=== PATIENT | female | born 1960 | race Caucasian/White ===

== ENCOUNTER 2017-01-12 05:30 | Observation (INO) | payer MEDICAID, OTHER ==
[~2017-01-12] VITALS: Ht 154.9 cm; Wt 49.9 kg
[2017-01-12 06:51] LABS: Basophils # (auto) 0 uL; Eosinophils # (auto) 0 uL; Eosinophils % (auto) 0.2 % (0.0-7.0); Hematocrit 39.6 % (36.0-46.0); Hemoglobin 13.4 g/dL (12.2-16.2); Lymphocytes # (auto) 1.1 uL; Lymphocytes % (auto) 9.3 % (10.0-50.0); Mean Corpuscular Hemoglobin 28.9 pg (28.0-32.0); Mean Corpuscular Hgb Conc. 33.8 g/dL (32.0-36.0); Mean Corpuscular Volume 85.5 fL (80.0-100.0); Mean Platelet Volume 8.3 fL (7.4-10.4); Monocytes # (auto) 0.3 uL; Monocytes % (auto) 2.2 % (0.0-12.0); Neutrophils # (auto) 10.5 uL; Neutrophils % (auto) 88.3 % (37.0-80.0); Platelet Count (auto) 239 10^3/uL (140-450); Red Cell Distribution Width 13.4 % (11.6-16.0); White Blood Cell 11.9 10^3/uL (4.4-10.8)
[2017-01-12 07:00] LABS: INR 0.99 (0.9-1.15); Partial Thromboplastin Time 23.1 sec (22.64-33.71); Prothrombin Time 10.7 sec (9.37-12.3)
[2017-01-12 07:10] LABS: Albumin 4.2 g/dL (3.4-5.0); Amylase 79 U/L (25-115); Anion Gap 8 (5-15); BUN/Creatinine Ratio 29.4; Blood Urea Nitrogen 25 mg/dL (7-18); Calcium 9.1 mg/dL (8.5-10.1); Carbon Dioxide 28 mmol/L (21-32); Chloride 106 mmol/L (98-107); GFR African American 90 mL/min; GFR Non-African American 74 mL/min; Glucose 108 mg/dL (74-106); Potassium 3.8 mmol/L (3.5-5.1); Sodium 142 mmol/L (136-145)
[2017-01-12 07:16] LABS: Alkaline Phosphatase 162 U/L (45-117); Aspartate Aminotransferase 27 U/L (15-37); Bilirubin, Total 0.4 mg/dL (0.2-1.0); Total Protein 7.7 g/dL (6.4-8.2)
[2017-01-12 09:14] VITALS: BP 114/70
[2017-01-12 09:30] LABS: Urine Bilirubin Negative (Negative); Urine Blood Negative /uL (Negative); Urine Color Yellow (Yellow); Urine Glucose Normal (Normal); Urine Ketone Negative (Negative); Urine Nitrite POSITIVE (Negative); Urine RBC 6 /hpf (0 - 4); Urine Squamous Epithelial Cell FEW /hpf (<5); Urine Urobilinogen Normal (Negative); Urine pH 6.5 (5.0-8.0)
== END 2017-01-12 10:01 | disposition home or self-care (01) | DRG 465 ==
LOC: EDBD 05:30 → ER 05:30 → OVERFLOW 07:33
PROVIDERS: ADMIT Emergency Medicine; ATTEND Emergency Medicine
DX: N20.0 Calculus of kidney (principal); E11.9 Type 2 diabetes mellitus without complications; Z87.442 Personal history of urinary calculi
CPT/HCPCS: 36415; 74176; 80053; 81001; 82150; 83690; 83735; 84484; 84702; 85025; 85610; 85730; 93005; 99285; G0378

== ENCOUNTER 2022-02-19 13:08 | Emergency (ER) | payer SELFPAY ==
[~2022-02-19] VITALS: Ht 152.4 cm; Wt 49.9 kg
[2022-02-19 13:20] VITALS: BP 157/63
== END 2022-02-19 14:36 | disposition home or self-care (01) ==
LOC: ER 13:08
DX: S16.1XXA Strain of muscle, fascia and tendon at neck level, initial encounter (principal); H60.92 Unspecified otitis externa, left ear; E11.9 Type 2 diabetes mellitus without complications; Z88.8 Allergy status to other drugs, medicaments and biological substances; X58.XXXA Exposure to other specified factors, initial encounter; Y93.89 Activity, other specified; Y92.89 Other specified places as the place of occurrence of the external cause; Y99.8 Other external cause status
CPT/HCPCS: 72040

== ENCOUNTER 2023-01-22 06:52 | Day surgery (SDC) | payer MEDICAID ==
[~2023-01-22] VITALS: Ht 152.4 cm; Wt 52.2 kg
[~2023-01-22 06:52] MED LIST: POM
[2023-01-22] MEDS ORDERED: fentaNYL CITRATE 100 MCG/2 ML VL ONE (08:30)
[2023-01-22] MEDS ORDERED: HEPARIN SODIUM (PORCINE) 5000 UNITS/ML 1ML VIAL ONE (08:30)
[2023-01-22] MEDS ORDERED: ANGIOMAX 250 MG VIAL IV ONE (08:30)
[2023-01-22] MEDS ORDERED: SODIUM CHL 0.9% 0 ML ONE (08:31)
[2023-01-22] MEDS ORDERED: MIDAZOLAM HCL 2MG/2ML 2ml VIAL (1mg/ml) ONE (08:31)
[2023-01-22] MEDS ORDERED: LIDOCAINE 2%HCL (LOCAL ANESTH.) INJ 20ML MDV ONE (08:31)
[2023-01-22] MEDS ORDERED: VERAPAMIL 2.5MG/ML INJ 2ML VIAL IV ONE (08:31)
[2023-01-22] MEDS ORDERED: IODIXANOL 320MG/ML 100ML BTL IV ONE (08:39)
[2023-01-22 09:25] VITALS: BP 100/46
[2023-01-22 09:40] VITALS: BP 94/56
[2023-01-22 09:55] VITALS: BP 91/49
[2023-01-22 11:09] VITALS: BP 107/56
[2023-01-22 11:24] VITALS: BP 114/48
[2023-01-22 11:52] VITALS: BP 101/49
== END 2023-01-22 12:00 | disposition home or self-care (01) ==
LOC: CATH 06:52
PROVIDERS: ATTEND Internal Medicine Cardiovascular Disease
DX: R94.39 Abnormal result of other cardiovascular function study (principal); R07.89 Other chest pain; E11.9 Type 2 diabetes mellitus without complications; I47.1 Supraventricular tachycardia; Z79.84 Long term (current) use of oral hypoglycemic drugs; Z79.899 Other long term (current) drug therapy
CPT/HCPCS: 76937; 93458; C1894; J1644; J2250; J3010; Q9967; 99152; 99153

== ENCOUNTER 2025-01-03 12:53 | Emergency (ER) | payer OTHER, MEDICAID ==
[~2025-01-03] VITALS: Ht 152.4 cm; Wt 47.7 kg
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
--- NOTE | 2025-01-03 15:09 | DVH ---
EXAM: CT CERVICAL WITHOUT CONTRAST INDICATION: [facility] EXAM DATE: 01/03/2025 02:23 PM COMPARISON: None TECHNIQUE: Multiple axial CT images of the cervical spine were obtained using bone algorithm. Axial a nd coronal reformatting was done. Bone and soft tissue windows were reviewed. Radiation Dose Information: CT Dose: CTDI volume is 8.87 mGy. Dose-length product is 228.23 mGy*cm FINDINGS: 7 [id number]-[id number] cervical type vertebrae. Straightening of the cervical lordosis. Vertebral body h eights are maintained. No evidence of acute traumatic fractures or spondylolisthesis. Small lytic les ion within C2 and C3. Metastasis can not be completely excluded. 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 Multilevel mild degenerative changes of the cervical spine. The prevertebral soft tissues unremarkable. Subtle ground-glass opacities of the lung apices. IMPRESSION: No evidence of acute cervical spine fracture or traumatic malalignment. All CT scans at this medical facility are performed using dose modulation techniques as appropriate t o a performed exam including the following: Automated exposure control was utilized; adjustment of th e MA and/or KV according to patient size; and use of iterative reconstruction technique.
[2025-01-03] MEDS ORDERED: ACET500T58 PO (15:16)
[2025-01-03] MEDS ORDERED: CYCL-837 PO (15:16)
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
[2025-01-03 18:51] VITALS: BP 117/60; PULSE 78; RESP 18; TEMP 96.5; O2SAT 100
== END 2025-01-03 15:22 | disposition home or self-care (01) ==
LOC: ER 12:53
DX: R51.9 Headache, unspecified (principal); R07.9 Chest pain, unspecified; E11.9 Type 2 diabetes mellitus without complications; Z88.5 Allergy status to narcotic agent; Z88.6 Allergy status to analgesic agent; Z88.8 Allergy status to other drugs, medicaments and biological substances; V89.2XXA Person injured in unspecified motor-vehicle accident, traffic, initial encounter; Y93.89 Activity, other specified; Y92.89 Other specified places as the place of occurrence of the external cause; Y99.8 Other external cause status
CPT/HCPCS: 70450; 71250; 72125

== ENCOUNTER 2025-07-11 13:55 | Emergency (ER) | payer MEDICAID, OTHER ==
[~2025-07-11] VITALS: Ht 154.9 cm; Wt 53.0 kg
[~2025-07-11 13:55] MED LIST changes: +ACET500T58 PO; +CYCL-837 PO
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
[2025-07-11 16:44] VITALS: BP 137/74; PULSE 78; RESP 16; TEMP 98.2; O2SAT 100
== END 2025-07-11 20:47 | disposition home or self-care (01) ==
LOC: EDBD 13:55 → ER 14:02
DX: R07.89 Other chest pain (principal); E11.9 Type 2 diabetes mellitus without complications; Z88.5 Allergy status to narcotic agent; Z88.6 Allergy status to analgesic agent; V89.2XXA Person injured in unspecified motor-vehicle accident, traffic, initial encounter; Y93.89 Activity, other specified; Y99.8 Other external cause status; Y92.410 Unspecified street and highway as the place of occurrence of the external cause
CPT/HCPCS: 71045; 73610